=== PATIENT | male | born 1940 | race Two or more races ===

== ENCOUNTER 2017-11-30 17:42 | Inpatient (IN) | payer MEDICARE, OTHER ==
[~2017-11-30] VITALS: Ht 167.6 cm; Wt 73.0 kg
[2017-11-30 08:45] VITALS: BP 186/88
[2017-11-30 17:59] LABS: BASOPHILS % (AUTO) 0.3 % (0.0-2.0); EOSINOPHILS # (AUTO) 1.1 /CMM (0.0-0.7); EOSINOPHILS % (AUTO) 9.3 % (0.0-6.0); HEMATOCRIT 32 % (39-51); HEMOGLOBIN 10.4 g/dL (13.5-17.5); LYMPHOCYTES # (AUTO) 2.9 /CMM (0.8-4.8); MEAN CORPUSCULAR HEMOGLOBIN 26 PG (26.0-33.0); MEAN CORPUSCULAR HGB CONC 33 g/dl (31.0-36.0); MEAN CORPUSCULAR VOLUME 79 fL (80-96); MONOCYTES % (AUTO) 8.9 % (2.0-12.0); NEUTROPHILS # (AUTO) 6.4 /CMM (1.8-8.9); NEUTROPHILS % (AUTO) 56.5 % (43.0-81.0); PLATELET COUNT (AUTO) 301 /CMM (150-450); RDW COEFFICIENT OF VARIATION 16.6 (11.5-15.0); RED BLOOD CELL COUNT(AUTO) 3.99 MIL/uL (4.5-6.0); WHITE BLOOD COUNT (AUTO) 11.4 K/uL (4.3-11.0)
[2017-11-30 18:12] LABS: CALCIUM, SERUM 8.5 mg/dL (8.5-10.1); CARBON DIOXIDE 24 mmol/L (21-32); CHLORIDE 107 mmol/L (98-107); CREATININE 1.1 mg/dL (0.6-1.3); GLUCOSE 113 mg/dL (74-106); POTASSIUM 3.6 mmol/L (3.5-5.1); SODIUM SERUM 141 mmol/L (136-145); UREA NITROGEN, BLOOD 12 mg/dL (7-18)
[2017-11-30 18:18] LABS: TROPONIN I 0.053 ng/mL (0.00-0.056)
[2017-11-30 18:23] LABS: INR 0.97 (0.85-1.15)
[2017-11-30 18:27] LABS: B-TYPE NATRIURETIC PEPTIDE 4976 PG/ML (0-125)
[2017-11-30] MEDS ORDERED: FUROSEMIDE 40 MG/4 ML VIAL ONE (18:53)
[2017-11-30] MEDS ORDERED: NITROGLYCERIN PACKET 1 GM PACKET ONE (18:58)
[2017-11-30] MEDS ORDERED: FUROSEMIDE 40 MG/4 ML VIAL IV ONE (19:00)
[2017-11-30] MEDS ORDERED: NITROGLYCERIN PACKET 1 GM PACKET TOP ONE (19:00)
[2017-11-30] MEDS ORDERED: FLUT1DIS3 IH (19:07)
[2017-11-30] MEDS ORDERED: DOCU100C36 PO (19:07)
[2017-11-30] MEDS ORDERED: ATOR40TA PO (19:07)
[2017-11-30] MEDS ORDERED: ASPI-1169 PO (19:07)
[2017-11-30] MEDS ORDERED: CLON0.1T PO (19:07)
[2017-11-30] MEDS ORDERED: METO50TA16 PO (19:07)
[2017-11-30] MEDS ORDERED: AMIO200T2 PO (19:07)
[2017-11-30] MEDS ORDERED: TAMS0.4C34 PO (19:07)
[2017-11-30] MEDS ORDERED: TIOT18CA3 IH (19:07)
[2017-11-30] MEDS ORDERED: MYRBETRIQ PO (19:07)
[2017-11-30 20:45] VITALS: BP 186/88
[2017-11-30] MEDS ORDERED: CLONIDINE HCL 0.1 MG TABLET PO PRN (21:00)
[2017-11-30] MEDS ORDERED: Z GUARD REMEDY 2 OZ OINT TP PRN (21:00)
[2017-11-30] MEDS ORDERED: ONDANSETRON HCL/PF 4 MG/2 ML VIAL IVP PRN (21:00)
[2017-11-30] MEDS ORDERED: HYDROCODONE/APAP 5/325MG 1 EACH TABLET PO PRN (21:00)
[2017-11-30] MEDS ORDERED: ZOLPIDEM TARTRATE 5 MG TABLET PO PRN (21:00)
[2017-11-30] MEDS ORDERED: ACETAMINOPHEN 325 MG TABLET PO PRN (21:00)
[2017-11-30] MEDS: ATORVASTATIN 40 MG TABLET PO SCH (21:24)
[2017-11-30] MEDS: hydrALAZINE HCL IV 20 MG VIAL IV PRN (21:25)
[2017-11-30] MEDS: TAMSULOSIN 0.4 MG CAP.SR.24H PO SCH (22:00)
[2017-11-30] MEDS ORDERED: ALBUTEROL HALF STRENGTH 1.25 MG/3 ML VIAL.NEB NEB PRN (22:30)
[2017-12-01] VITALS: BP 162/75
[2017-12-01] MEDS ORDERED: IPRATROPIUM NEB FS 0.5 MG/2.5 ML AMPUL.NEB NEB ONE (01:00)
[2017-12-01] MEDS ORDERED: methylPREDNISolone SOD SUCC 125 MG/2ML VIAL IV ONE (01:00)
[2017-12-01] MEDS ORDERED: ALBUTEROL FS 2.5 MG/0.5 ML VIAL.NEB NEB ONE (01:00)
[2017-12-01 04:00] VITALS: BP 165/85
[2017-12-01] MEDS: hydrALAZINE HCL IV 20 MG VIAL IV PRN ×2 (06:35→16:55)
[2017-12-01] MEDS: methylPREDNISolone SOD SUCC 125 MG/2ML VIAL IV SCH ×3 (06:35→20:53)
[2017-12-01] MEDS: ALBUTEROL FS 2.5 MG/0.5 ML VIAL.NEB NEB SCH ×3 (07:37→23:18)
[2017-12-01] MEDS: IPRATROPIUM NEB FS 0.5 MG/2.5 ML AMPUL.NEB NEB SCH ×3 (07:37→19:40)
[2017-12-01 07:57] LABS: BASOPHILS % (AUTO) 0.3 % (0.0-2.0); EOSINOPHILS # (AUTO) 0.7 /CMM (0.0-0.7); EOSINOPHILS % (AUTO) 5.1 % (0.0-6.0); HEMATOCRIT 34 % (39-51); HEMOGLOBIN 10.9 g/dL (13.5-17.5); LYMPHOCYTES # (AUTO) 3.5 /CMM (0.8-4.8); LYMPHOCYTES % (AUTO) 27.2 % (20.0-44.0); MEAN CORPUSCULAR HEMOGLOBIN 26 PG (26.0-33.0); MEAN CORPUSCULAR HGB CONC 33 g/dl (31.0-36.0); MEAN CORPUSCULAR VOLUME 81 fL (80-96); MONOCYTES # (AUTO) 1.2 /CMM (0.1-1.30); NEUTROPHILS # (AUTO) 7.5 /CMM (1.8-8.9); NEUTROPHILS % (AUTO) 58.4 % (43.0-81.0); PLATELET COUNT (AUTO) 308 /CMM (150-450); RDW COEFFICIENT OF VARIATION 18.1 (11.5-15.0); RED BLOOD CELL COUNT(AUTO) 4.14 MIL/uL (4.5-6.0); WHITE BLOOD COUNT (AUTO) 12.8 K/uL (4.3-11.0)
[2017-12-01 08:11] LABS: CHOLESTEROL 160 mg/dL (<200); HDL CHOLESTEROL 39 mg/dL (40-60); LDL 106 mg/dL (0-99); TRIGLYCERIDES 106 mg/dL (30-150)
[2017-12-01 08:17] LABS: CALCIUM, SERUM 8.4 mg/dL (8.5-10.1); CARBON DIOXIDE 26 mmol/L (21-32); CHLORIDE 104 mmol/L (98-107); CREATININE 1.1 mg/dL (0.6-1.3); GLUCOSE 94 mg/dL (74-106); MAGNESIUM 1.8 mg/dL (1.8-2.4); PHOSPHORUS 3.4 mg/dL (2.5-4.9); POTASSIUM 3.1 mmol/L (3.5-5.1); SODIUM SERUM 142 mmol/L (136-145); UREA NITROGEN, BLOOD 9 mg/dL (7-18)
[2017-12-01] MEDS ORDERED: TIOTROPIUM BROMIDE 6 CAP/BOX CAP.W.DEV IH SCH (09:00)
[2017-12-01] MEDS: FLUTICASONE/VILANTEROL 1 EACH BLST.W.DEV IH SCH (09:00)
[2017-12-01] MEDS ORDERED: FLUTICASONE/SALMETEROL DISKUS IH SCH (09:00)
[2017-12-01] MEDS: ASPIRIN 81 MG TAB.CHEW PO SCH (09:08)
[2017-12-01] MEDS: AMIODARONE HCL 200 MG TABLET PO SCH (09:09)
[2017-12-01] MEDS: DOCUSATE SODIUM 100 MG CAPSULE PO SCH (09:09)
[2017-12-01] MEDS: METOPROLOL TARTRATE 50 MG TABLET PO SCH ×2 (09:09→16:53)
[2017-12-01 09:11] VITALS: BP 175/78
[2017-12-01 09:13] LABS: ABG BASE EXCESS 2.1 mmol/L; ABG OXYGEN SATURATION 88.7 % (92.0-98.5); ABG PCO2 31.3 mmHg (35.0-45.0); ABG PH 7.512 (7.350-7.450); ABG PO2 53.7 mmHg (75.0-100.0); COHb 0.5 % (0.5-1.5); MetHb 0.4 % (0.0-1.5); O2Hb 87.9 % (94.0-97.0); SITE, ABG Right Radial; VENT MODE, BG Nasal Cannula
[2017-12-01] MEDS: ENOXAPARIN SODIUM 40 MG/0.4 ML DISP.SYRIN SQ SCH (09:14)
[2017-12-01] MEDS ORDERED: IOHEXOL-350 100 ML VIAL IV ONE ×2 (09:16→20:45)
[2017-12-01] MEDS ORDERED: IV NS 0.9% 250 ML IV ONE ×2 (09:16→20:45)
[2017-12-01] MEDS ORDERED: POTASSIUM CHLORIDE 20 MEQ TAB.PRT.SR PO SCH (10:00)
[2017-12-01] MEDS ORDERED: POTASSIUM CHLORIDE 20 MEQ TAB.PRT.SR PO ONE (11:30)
[2017-12-01 12:21] VITALS: BP 148/87
[2017-12-01 16:00] VITALS: BP 175/78
[2017-12-01] MEDS: MIRABEGRON 25 MG PO SCH (16:51)
[2017-12-01] MEDS: AMLODIPINE BESYLATE 10 MG TABLET PO SCH (17:50)
[2017-12-01] MEDS ORDERED: POTASSIUM CHLORIDE 20 MEQ POWDER PACKET PO ONE (18:00)
[2017-12-01] MEDS ORDERED: FUROSEMIDE 20 MG/2 ML VIAL IV ONE (18:00)
[2017-12-01 20:00] VITALS: BP 150/76
[2017-12-01] MEDS: ATORVASTATIN 40 MG TABLET PO SCH (21:29)
[2017-12-01] MEDS: TAMSULOSIN 0.4 MG CAP.SR.24H PO SCH (21:29)
[2017-12-02] VITALS: BP 155/77
[2017-12-02] MEDS ORDERED: QUET300T2 PO (00:17)
[2017-12-02 04:00] VITALS: BP 162/67
[2017-12-02] MEDS: methylPREDNISolone SOD SUCC 125 MG/2ML VIAL IV SCH ×3 (04:23→22:11)
[2017-12-02] MEDS: hydrALAZINE HCL IV 20 MG VIAL IV PRN (05:27)
[2017-12-02 06:50] LABS: BASOPHILS % (AUTO) 0.1 % (0.0-2.0); HEMATOCRIT 31 % (39-51); HEMOGLOBIN 10.3 g/dL (13.5-17.5); LYMPHOCYTES # (AUTO) 1.9 /CMM (0.8-4.8); LYMPHOCYTES % (AUTO) 17.1 % (20.0-44.0); MEAN CORPUSCULAR HEMOGLOBIN 27 PG (26.0-33.0); MEAN CORPUSCULAR HGB CONC 33 g/dl (31.0-36.0); MEAN CORPUSCULAR VOLUME 80 fL (80-96); MONOCYTES # (AUTO) 0.4 /CMM (0.1-1.30); MONOCYTES % (AUTO) 3.6 % (2.0-12.0); NEUTROPHILS # (AUTO) 8.6 /CMM (1.8-8.9); NEUTROPHILS % (AUTO) 79.2 % (43.0-81.0); PLATELET COUNT (AUTO) 298 /CMM (150-450); RDW COEFFICIENT OF VARIATION 18.3 (11.5-15.0); RED BLOOD CELL COUNT(AUTO) 3.89 MIL/uL (4.5-6.0); WHITE BLOOD COUNT (AUTO) 10.9 K/uL (4.3-11.0)
[2017-12-02 06:57] LABS: CALCIUM, SERUM 8.4 mg/dL (8.5-10.1); CARBON DIOXIDE 23 mmol/L (21-32); CHLORIDE 103 mmol/L (98-107); CREATININE 1.1 mg/dL (0.6-1.3); GLUCOSE 152 mg/dL (74-106); SODIUM SERUM 138 mmol/L (136-145); UREA NITROGEN, BLOOD 17 mg/dL (7-18)
[2017-12-02] MEDS: ALBUTEROL FS 2.5 MG/0.5 ML VIAL.NEB NEB SCH ×3 (07:35→19:28)
[2017-12-02] MEDS: IPRATROPIUM NEB FS 0.5 MG/2.5 ML AMPUL.NEB NEB SCH ×3 (07:35→19:28)
[2017-12-02 08:00] VITALS: BP 154/76
[2017-12-02] MEDS: ASPIRIN 81 MG TAB.CHEW PO SCH (08:55)
[2017-12-02] MEDS: DOCUSATE SODIUM 100 MG CAPSULE PO SCH (08:55)
[2017-12-02] MEDS: AMLODIPINE BESYLATE 10 MG TABLET PO SCH (08:56)
[2017-12-02] MEDS: AMIODARONE HCL 200 MG TABLET PO SCH (08:57)
[2017-12-02] MEDS: FLUTICASONE/VILANTEROL 1 EACH BLST.W.DEV IH SCH (08:58)
[2017-12-02] MEDS: METOPROLOL TARTRATE 50 MG TABLET PO SCH ×2 (09:00→18:12)
[2017-12-02] MEDS: ENOXAPARIN SODIUM 40 MG/0.4 ML DISP.SYRIN SQ SCH (09:03)
[2017-12-02] MEDS: NICOTINE PATCH (21MG) 21 MG PATCH.TD24 TD SCH (09:04)
[2017-12-02] MEDS ORDERED: PHENYLEPHRINE/SHK LV/MO/PET,WH 30 GM TUBE RC PRN (10:00)
[2017-12-02 12:00] VITALS: BP 146/62
[2017-12-02] MEDS: FUROSEMIDE 20 MG TABLET PO SCH (15:53)
[2017-12-02 16:00] VITALS: BP 150/75
[2017-12-02] MEDS ORDERED: FUROSEMIDE 20 MG/2 ML VIAL IV ONE (16:30)
[2017-12-02] MEDS: hydrALAZINE HCL 25 MG TABLET PO SCH (18:13)
[2017-12-02] MEDS: MIRABEGRON 25 MG PO SCH (18:14)
[2017-12-02 20:00] VITALS: BP 145/72
[2017-12-02] MEDS: TAMSULOSIN 0.4 MG CAP.SR.24H PO SCH (22:11)
[2017-12-02] MEDS: ATORVASTATIN 40 MG TABLET PO SCH (22:12)
[2017-12-03] VITALS: BP 169/75
[2017-12-03] MEDS: hydrALAZINE HCL IV 20 MG VIAL IV PRN (00:20)
[2017-12-03] MEDS: IPRATROPIUM NEB FS 0.5 MG/2.5 ML AMPUL.NEB NEB SCH ×3 (01:47→13:21)
[2017-12-03] MEDS: ALBUTEROL FS 2.5 MG/0.5 ML VIAL.NEB NEB SCH ×3 (01:47→13:21)
[2017-12-03 04:00] VITALS: BP 141/67
[2017-12-03] MEDS: methylPREDNISolone SOD SUCC 125 MG/2ML VIAL IV SCH ×2 (05:30→12:52)
[2017-12-03 08:00] VITALS: BP 176/87
[2017-12-03] MEDS: ASPIRIN 81 MG TAB.CHEW PO SCH (08:45)
[2017-12-03] MEDS: FUROSEMIDE 20 MG TABLET PO SCH (08:45)
[2017-12-03] MEDS: NICOTINE PATCH (21MG) 21 MG PATCH.TD24 TD SCH (08:45)
[2017-12-03] MEDS: METOPROLOL TARTRATE 50 MG TABLET PO SCH ×2 (08:46→16:52)
[2017-12-03] MEDS: DOCUSATE SODIUM 100 MG CAPSULE PO SCH (08:46)
[2017-12-03] MEDS: AMIODARONE HCL 200 MG TABLET PO SCH (08:46)
[2017-12-03] MEDS: AMLODIPINE BESYLATE 10 MG TABLET PO SCH (08:46)
[2017-12-03] MEDS: hydrALAZINE HCL 25 MG TABLET PO SCH (08:47)
[2017-12-03] MEDS: FLUTICASONE/VILANTEROL 1 EACH BLST.W.DEV IH SCH (08:50)
[2017-12-03] MEDS: MIRABEGRON 25 MG PO SCH (08:50)
[2017-12-03] MEDS: ENOXAPARIN SODIUM 40 MG/0.4 ML DISP.SYRIN SQ SCH (08:54)
[2017-12-03 12:00] VITALS: BP 145/72
[2017-12-03] MEDS ORDERED: AMLO10TA2 PO (12:22)
[2017-12-03] MEDS ORDERED: FURO20TA4 PO (12:22)
[2017-12-03] MEDS ORDERED: HYDR-4076 PO (12:22)
[2017-12-03] MEDS ORDERED: PRED20TA PO (12:27)
[2017-12-03] MEDS ORDERED: ALBU18HF2 INH (12:28)
[2017-12-03 16:00] VITALS: BP 140/53
[2017-12-03 17:00] VITALS: BP 141/53
[2017-12-03] MEDS ORDERED: hydrALAZINE HCL 25 MG TABLET PO SCH (17:00)
== END 2017-12-03 18:58 | disposition home health service (06) | DRG 280 ==
LOC: ER 17:45 → EDBD 19:41 → TELE 19:41
PROVIDERS: ADMIT Nurse Practitioner Acute Care; ATTEND Nurse Practitioner Acute Care
DX: I11.0 Hypertensive heart disease with heart failure (principal); J96.01 Acute respiratory failure with hypoxia; I21.A1 Myocardial infarction type 2; J44.0 Chronic obstructive pulmonary disease with (acute) lower respiratory infection; E11.65 Type 2 diabetes mellitus with hyperglycemia; R13.10 Dysphagia, unspecified; I71.2 Thoracic aortic aneurysm, without rupture; J44.1 Chronic obstructive pulmonary disease with (acute) exacerbation; I72.3 Aneurysm of iliac artery; D63.8 Anemia in other chronic diseases classified elsewhere; E78.5 Hyperlipidemia, unspecified; D72.829 Elevated white blood cell count, unspecified; E87.6 Hypokalemia; I50.31 Acute diastolic (congestive) heart failure; Z79.82 Long term (current) use of aspirin; Z79.899 Other long term (current) drug therapy; F17.200 Nicotine dependence, unspecified, uncomplicated; I25.10 Atherosclerotic heart disease of native coronary artery without angina pectoris; I70.0 Atherosclerosis of aorta; I48.0 Paroxysmal atrial fibrillation; N40.1 Benign prostatic hyperplasia with lower urinary tract symptoms; G47.30 Sleep apnea, unspecified; K40.90 Unilateral inguinal hernia, without obstruction or gangrene, not specified as recurrent; I71.4 Abdominal aortic aneurysm, without rupture; Z95.1 Presence of aortocoronary bypass graft
CPT/HCPCS: 36415; 36600; 71045-TC; 80048-TC; 80061-TC; 82803-TC; 83735-TC; 83880; 84100-TC; 84484-TC; 85025-TC; 85730-TC; 87081-TC; 92521; 93307-TC; 93970-TC; 94799-TC; A4606; J0360; J1650; J1940; J2930; J7050; Q9967; Z7610

== ENCOUNTER 2018-02-02 13:34 | Emergency (ER) | payer MEDICARE, OTHER ==
[~2018-02-02] VITALS: Ht 167.6 cm; Wt 65.8 kg
[~2018-02-02 13:34] MED LIST: ALBU18HF2 INH; AMIO200T4 PO; AMLO10TA6 PO; ASPI-1169 PO; ATOR40TA PO; CLON0.1T PO; DOCU100C36 PO; FLUT1DIS3 IH; FURO20TA4 PO; HYDR-4076 PO; METO50TA16 PO; MYRBETRIQ PO; PRED20TA PO; QUET300T2 PO; TAMS0.4C34 PO; TIOT18CA3 IH
--- NOTE | 2018-02-02 13:40 | NUR ---
[id number], BBRA FROM HOME C/O RT FLANK PAIN. RR IS EVEN AND UNLABORED WITH NAD NOTED. SKIN IS WARM AND DRY. AWAITING MD FOR EVAL.
[2018-02-02 14:01] LABS: BASOPHILS # (AUTO) 0.2 /CMM (0.0-0.2); BASOPHILS % (AUTO) 0.9 % (0.0-2.0); EOSINOPHILS % (AUTO) 0.8 % (0.0-6.0); HEMATOCRIT 40 % (39-51); HEMOGLOBIN 12.9 g/dL (13.5-17.5); LYMPHOCYTES # (AUTO) 1.6 /CMM (0.8-4.8); LYMPHOCYTES % (AUTO) 7.7 % (20.0-44.0); MEAN CORPUSCULAR HGB CONC 33 g/dl (31.0-36.0); MEAN CORPUSCULAR VOLUME 77 fL (80-96); MONOCYTES # (AUTO) 1.7 /CMM (0.1-1.30); MONOCYTES % (AUTO) 8.6 % (2.0-12.0); NEUTROPHILS # (AUTO) 16.4 /CMM (1.8-8.9); PLATELET COUNT (AUTO) 365 /CMM (150-450); RDW COEFFICIENT OF VARIATION 17.9 (11.5-15.0); RED BLOOD CELL COUNT(AUTO) 5.12 MIL/uL (4.5-6.0); WHITE BLOOD COUNT (AUTO) 20.1 K/uL (4.3-11.0)
[2018-02-02 14:15] LABS: INR 0.97 (0.85-1.15)
[2018-02-02 14:16] LABS: CALCIUM, SERUM 8.5 mg/dL (8.5-10.1); CARBON DIOXIDE 28 mmol/L (21-32); CHLORIDE 101 mmol/L (98-107); CREATININE 2.4 mg/dL (0.6-1.3); GLUCOSE 169 mg/dL (74-106); POTASSIUM 3.7 mmol/L (3.5-5.1); SODIUM SERUM 135 mmol/L (136-145); UREA NITROGEN, BLOOD 22 mg/dL (7-18)
[2018-02-02 14:19] LABS: TROPONIN I < 0.017 ng/mL (0.00-0.056)
[2018-02-02 14:22] LABS: ALANINE AMINOTRANSFERASE 58 U/L (12-78); ALBUMIN 1.9 g/dL (3.4-5.0); ALKALINE PHOSPHATASE 338 U/L (46-116); ASPARTATE AMINOTRANSFERASE 45 U/L (15-37); BILIRUBIN,DIRECT 0.1 mg/dL (0.0-0.2); BILIRUBIN,TOTAL 0.4 mg/dL (0.2-1.0); LIPASE 41 U/L (73-393); TOTAL PROTEIN, SERUM 6.7 g/dL (6.4-8.2)
[2018-02-02] MEDS ORDERED: ONDANSETRON HCL/PF - ER 4 MG/2 ML VIAL IV ONE ×2 (14:30→20:00)
[2018-02-02] MEDS ORDERED: IV NS 0.9% 1,000 ML IV ONE (14:30)
[2018-02-02] MEDS ORDERED: ONDANSETRON HCL/PF 4 MG/2 ML VIAL ONE ×2 (14:35→20:01)
[2018-02-02] MEDS ORDERED: PIPERACILLIN /TAZOBACTAM 3.375 G in IV D5W 50 ML IV ONE (16:00)
[2018-02-02] MEDS ORDERED: ALBUTEROL FS 2.5 MG/3 ML VIAL.NEB NEB ONE (16:00)
[2018-02-02] MEDS ORDERED: IPRATROPIUM NEB FS 0.5 MG/2.5 ML AMPUL.NEB NEB ONE (16:00)
--- NOTE | 2018-02-02 16:00 | NUR ---
[facility] called , dr Snell workplace relations adviser
[2018-02-02 16:06] LABS: APPEARANCE,URINE CLEAR (CLEAR); BILIRUBIN,URINE NEGATIVE (NEGATIVE); BLOOD, URINE 1+ Ery/uL (NEGATIVE); COLOR,URINE YELLOW (YELLOW); KETONES,URINE NEGATIVE (NEGATIVE); LEUKOCYTE ESTERASE ,URINE NEGATIVE (NEGATIVE); NITRITE, URINE NEGATIVE (NEGATIVE); PH,URINE 5.5 (5.0-8.0); PROTEIN,URINE 1+ mg/dl (NEGATIVE); UGLUCOSE NEGATIVE (NEGATIVE); UROBILINOGEN,URINE 0.2 EU/dL (0.2)
[2018-02-02] MEDS ORDERED: IPRATROPIUM NEB FS 0.5 MG/2.5 ML AMPUL.NEB ONE (16:09)
[2018-02-02] MEDS ORDERED: ALBUTEROL FS 2.5 MG/3 ML VIAL.NEB ONE (16:09)
--- NOTE | 2018-02-02 16:20 | NUR ---
BREATHING TREATMENT IN PROGRESS AT BS
--- NOTE | 2018-02-02 16:37 | NUR ---
CALLED [facility] AND SPOKE TO NURSING INVESTMENT FUND MANAGER MIRI AND INFORMED HER THAT THIS PATIENT IS BEING ACCEPTED UNDER DR. LOPEZ. DUE TO DR LOEPZ NOT BEING PRIVILEGED UNDER [facility], THE OFFICE RESOURCE DEVELOPMENT MANAGER FROM [facility] SAID THAT DR PEGGY EL WOULD BE ADMITTING THIS PT UNDER HIM.
--- NOTE | 2018-02-02 16:43 | NUR ---
SPOKE TO CHARGE NURSE PEACE ABOUT THIS PT AND HE HAS ASKED TO FAX OVER CLINICALS AND FACE SHEET TO [phone]. SAM IS THE ACCEPTING RN AND REPORT CAN BE GIVEN AT [phone].
[2018-02-02 16:56] LABS: BACTERIA,URINE None seen /HPF (None Seen); SQUAMOUS EPITHELIAL CELL,UR Few /HPF (None Seen); WBC,URINE 0-2 /HPF (0-3)
--- NOTE | 2018-02-02 17:00 | NUR ---
SPOKE TO JUAN MANUEL AT [facility] AND I WENT AHEAD AND FAXED OVER A FACESHEET AND CLINICALS TO HER (FAX #:[phone]) TELEPHONE NUMBER: [phone]
--- NOTE | 2018-02-02 18:14 | NUR ---
Patient is resting comfortably in bed with eyes closed. Easily aroused. VSS
--- NOTE | 2018-02-02 19:00 | NUR ---
RECEIVED REPORT FROM DUSTIN SUTTON FOR [facility].
--- NOTE | 2018-02-02 19:05 | NUR ---
REPORT GIVEN TO DUSTIN MURDOCK FOR [facility].
--- NOTE | 2018-02-02 19:06 | NUR ---
CALLING REPORT TO DUSTIN VARGAS
--- NOTE | 2018-02-02 19:08 | NUR ---
Margarita hendricks in [facility] - 02/02/18 at 1911 by NATALYA REPORT TO DUSTIN MONZON AT [facility]
--- NOTE | 2018-02-02 19:08 | NUR ---
REPORT GIVEN TO NICOLÁS RN AT [facility]
[2018-02-02] MEDS ORDERED: FURO-145 PO (19:16)
[2018-02-02] MEDS ORDERED: AMLO10TA6 PO (19:16)
[2018-02-02] MEDS ORDERED: TRAZ-182 PO (19:16)
[2018-02-02] MEDS ORDERED: AMIO200T4 PO (19:16)
[2018-02-02] MEDS ORDERED: HYDR-552 PO ×2 (19:16)
[2018-02-02] MEDS ORDERED: ONDA4TAB5 PO (19:16)
[2018-02-02] MEDS ORDERED: METO50TA16 PO (19:16)
[2018-02-02] MEDS ORDERED: HYDR-4076 PO (19:16)
[2018-02-02] MEDS ORDERED: DOXA1TAB2 PO (19:16)
[2018-02-02] MEDS ORDERED: CITA20TA19 PO (19:16)
[2018-02-02] MEDS ORDERED: ASPI-1169 PO (19:16)
[2018-02-02] MEDS ORDERED: DOCU100C36 PO (19:16)
[2018-02-02] MEDS ORDERED: TIOT18CA3 IH (19:16)
[2018-02-02] MEDS ORDERED: TAMS0.4C34 PO (19:16)
[2018-02-02] MEDS ORDERED: ALBU18HF2 IH (19:16)
[2018-02-02] MEDS ORDERED: IPRA3AMP23 IH (19:16)
[2018-02-02] MEDS ORDERED: POLY17PO4 PO (19:16)
--- NOTE | 2018-02-02 19:50 | NUR ---
REPORT GIVEN TO EMT MORA. PT AWARE OF TRANSFER. PT WITH ALL PERSONAL BELONGINGS. IV INTACT AND PATENT. NO S/S INFECTION OR INFILTRATION NOTED. PT TO BE TRANSFERRED TO [facility]IA [facility].
[2018-02-02 19:54] VITALS: BP 141/63
[2018-02-02] MEDS ORDERED: MORPHINE SULFATE INJ 2 MG/ML DISP.SYRIN IV ONE (20:00)
[2018-02-02] MEDS ORDERED: MORPHINE SULFATE INJ 4 MG/ML DISP.SYRIN ONE (20:01)
--- NOTE | 2018-02-02 20:06 | NUR ---
PT MEDICATED PRIOR TO TRANSFER PER MD.
== END 2018-02-02 20:13 | disposition short-term general hospital (02) ==
LOC: ER 13:35
DX: N20.0 Calculus of kidney (principal); N28.9 Disorder of kidney and ureter, unspecified; D72.829 Elevated white blood cell count, unspecified; I11.0 Hypertensive heart disease with heart failure; I50.9 Heart failure, unspecified; Z95.1 Presence of aortocoronary bypass graft; J44.9 Chronic obstructive pulmonary disease, unspecified; Z98.890 Other specified postprocedural states; Z79.82 Long term (current) use of aspirin
CPT/HCPCS: 36415; 71100-TC; 80048-TC; 80076-TC; 81000-TC; 83690-TC; 84484-TC; 85025-TC; 85730-TC; A4606; J2270; J2405; J2543; J7030; J7060; Z7610